=== PATIENT | female | born 1960 | race Caucasian/White ===

== ENCOUNTER → 2020-06-27 | Outpatient (CLI) | payer OTHER | LOC: CAT 13:11 | PROVIDERS: ATTEND Nurse Practitioner | DX: F07.0 Personality change due to known physiological condition (principal) ==

== ENCOUNTER → 2020-07-10 | Outpatient (CLI) | payer OTHER | LOC: MRI 13:14 | PROVIDERS: ATTEND Nurse Practitioner | DX: R41.89 Other symptoms and signs involving cognitive functions and awareness (principal); R47.89 Other speech disturbances; F99 Mental disorder, not otherwise specified ==